=== PATIENT | male | born 1945 | race Caucasian/White ===

== ENCOUNTER 2016-08-03 15:22 | Inpatient (IN) | payer MEDICARE, OTHER ==
[~2016-08-03] VITALS: Ht 177.8 cm; Wt 83.0 kg
[~2016-08-03 15:22] MED LIST: ARICEPT10 MG PO; ATIVAN0.5 MG PO; BISACODYL5 MG PO; BUPROBAN150 MG PO; COLACE100 MG PO; COUMADIN2.5 MG OR; COUMADIN2.5 MG PO; COUMADIN5 MG OR; COUMADIN5 MG PO; ELAVIL25 MG PO; ELIQUIS2.5 MG PO; FLEXERIL10 MG OR; FLOMAX0.4 MG PO; K-DUR20 MEQ PO; LEVAQUIN750 MG PO; LEXAPRO10 MG PO; LIPITOR10 MG PO; MS CONTIN15 MG PO; NORCO 10/325 TA1 TA1 PO; NORCO 5/325 TAB1 TA1 PO; PRESERVISION AR1 CAP PO; SALINE FLUSH10 ML IJ; SENOKOT-S TABLE1 TAB PO; TYLENOL 325 MG325 MG PO; TYLENOL650 MG PO; VESICARE10 MG PO; WELLBUTRIN SR150 MG PO
[2016-08-03] MEDS ORDERED: ELAVIL10 MG PO (16:09)
[2016-08-03] MEDS ORDERED: ELOCON 0.1% OIN15 GM TOPICAL (16:10)
[2016-08-03] MEDS ORDERED: VITAMIN B-121000 MCG PO (16:11)
--- NOTE | 2016-08-03 16:20 | NUR ---
RECIEVED TO ROOM 2202 FROM ADMISSIONS VIA DIRECT ADMISSION FROM [facility] FOR HEMATURIA AND CLOTTING DISORDER. PT AWAKE AND ALERT ORIENTED X 3 PIV SITED TO LEFT UPPER ARM 20 GA X 1 STICK. FLUIDS PER ORDER. AT BEDSIDE.
[2016-08-03 17:07] LABS: BASOPHILS 0.3 % (0.0-2.0); EOSINOPHILS 0.1 % (0-7); HEMATOCRIT 36.8 % (42.0-54.0); HEMOGLOBIN 11.8 g/dL (13.5-17.5); IMMATURE GRANULOCYTES 0.4 % (0-5); LYMPHOCYTES 15.1 % (15-50); MCH 31.5 pg (26.0-34.0); MCHC 32.1 g/dL (31.0-37.0); MCV 98.1 fL (80.0-100.0); MEAN PLATELET VOLUME 9.8 fL (7.4-10.4); MONOCYTES 9.3 % (2-11); NEUTROPHILS 74.8 % (40-80); PLATELET COUNT 172 10x3/uL (130-400); RBC 3.75 10x6/uL (4.20-6.10); RDW 14.8 % (11.5-14.5); WBC 13.9 10x3/uL (4.8-10.8)
[2016-08-03 17:22] LABS: INR 2.29 (0.85-1.17); PROTIME 25.3 SECONDS (11.6-15.0)
[2016-08-03 17:27] LABS: ALBUMIN 3.5 g/dL (3.4-5.0); ANION GAP 12.5 mmol/L (8-16); BILIRUBIN - TOTAL 1.08 mg/dL (0.2-1.3); CALCIUM 8.3 mg/dL (8.5-10.1); CARBON DIOXIDE 28.2 mmol/L (21.0-32.0); CREATININE - SERUM 1.4 mg/dL (0.6-1.3); POTASSIUM - SERUM 3.7 mmol/L (3.5-5.1); PROTEIN - SERUM 7.3 g/dL (6.4-8.2)
--- NOTE | 2016-08-03 19:30 | NUR ---
PT RECEIVED RESTING IN BED WITH EYES CLOSED. PT ALERT AND ORIENTED X3. BREATH SOUNDS CLEAR BILATERALLY. RESPIRATIONS ARE EVEN AND UNLABORED. BOWEL SOUNDS ACTIVE X4. ABD SOFT AND NONTENDER UPON PALPATION. HAND SHAFT HEADMAN EQUAL. PT UP AD KRISTEN. DENIES PAIN OR NEEDS AT THIS TIME. IV NOTED TO LEFT UPPER ARM, WITH D5 1/2 NS, NOTED TO BE PATENT. CALL LIGHT AND H2O IN PT REACH. SIDE RAILS UP X2. BED IN LOW POSITION.
[2016-08-03 20:00] VITALS: BP 140/66
--- NOTE | 2016-08-03 20:00 | NUR ---
PT NOTED TO HAVE FEVER OF 101. DR. LIZARRAGA NOTIFIED, NEW ORDER FOR ACETAMINOPHEN 325MG 1 PO Q6HR PRN FEVER RECEIVED. PT REFUSED ACETAMINOPHEN. PT STATES, "I DON'T WANT TYLENOL. YOU CAN KEEP YOUR TYLENOL. I DON'T FEEL LIKE I HAVE A FEVER. I FEEL FINE." PT NOTED TO HAVE TWO BLANKETS COVERING BODY. PT AGREED TO REMOVE BLANKETS IN EFFORTS TO LOWER BODY TEMPERATURE. PT DENIES PAIN OR NEEDS AT THIS TIME. CALL LIGHT AND H2O IN PT REACH. SIDE RAILS UP X2. BED IN LOW POSITION.
--- NOTE | 2016-08-03 21:30 | NUR ---
PT RESTING IN BED WITH EYES CLOSED. AROUSES TO VERBAL STIMULI. RESPIRATIONS EVEN AND UNLABORED. NO S/S OF DISTRESS NOTED. PT DENIES PAIN OR NEEDS AT THIS TIME. CALL LIGHT AND H2O IN PT REACH. SIDE RAILS UP X2. BED IN LOW POSITION.
--- NOTE | 2016-08-03 23:30 | NUR ---
PT UP IN BED. NO S/S OF DISTRESS NOTED. RESPIRATIONS EVEN AND UNALBORED. RESIDENT DENIES PAIN OR NEEDS. CALL LIGHT AND H2O IN PT REACH. SIDE RAILS UP X2. PT DENIES PAIN OR NEEDS. URINE SPECIMEN COLLECTED VIA CLEAN CATCH AND SENT TO LAB.
[2016-08-03 23:55] LABS: APPEARANCE TURBID (CLEAR); BILIRUBIN NEGATIVE (NEGATIVE); COLOR RED (YELLOW); GLUCOSE NEGATIVE (NEGATIVE); KETONE NEGATIVE (NEGATIVE); LEUKOCYTE ESTERASE 1+ (NEGATIVE); NITRITE NEGATIVE (NEGATIVE); PROTEIN 3+ mg/dL (NEGATIVE); UROBILINOGEN NORMAL (NORMAL)
[2016-08-03 23:57] LABS: BACTERIA MODERATE /hpf (NONE SEEN); EPITHELIAL CELLS RARE /hpf (0-5); RED CELLS - URINE >50 /hpf (0-5); WHITE CELLS - URINE 25-50 /hpf (0-5)
[2016-08-04] VITALS: BP 119/49
--- NOTE | 2016-08-04 01:30 | NUR ---
PT RESTING IN BED WITH EYES CLOSED. NO S/S OF DISTRESS NOTED. RESP EVEN AND UNLABORED. PT ABLE TO VOICE NEEDS, NO COMPLAINTS OR NEEDS VOICED AT THIS TIME. CALL LIGHT AND H2O IN PT REACH. SIDE RAILS UP X2. BED IN LOW POSITION.
[2016-08-04 04:00] VITALS: BP 136/62
--- NOTE | 2016-08-04 04:00 | NUR ---
PATIENT SLEEPING WITH NO DISTRESS NOTED. AGREE WITH MELTER SUPERVISOR ELECTRIC ARC FURNACE ASSESSMENT.
--- NOTE | 2016-08-04 05:30 | NUR ---
PT RESTING IN BED WITH EYES CLOSED. NO S/S OF DISTRESS NOTED. RESP EVEN AND UNLABORED. PT ABLE TO VOICE NEEDS, NO COMPLAINTS OR NEEDS VOICED AT THIS TIME. CALL LIGHT AND H20 IN REACH. BED IN LOW POSITION. SIDE RAILS UP X2.
[2016-08-04 06:29] LABS: BASOPHILS 0.1 % (0.0-2.0); EOSINOPHILS 0.4 % (0-7); HEMATOCRIT 34.7 % (42.0-54.0); HEMOGLOBIN 11.4 g/dL (13.5-17.5); IMMATURE GRANULOCYTES 0.2 % (0-5); MCH 31.8 pg (26.0-34.0); MCHC 32.9 g/dL (31.0-37.0); MCV 96.7 fL (80.0-100.0); MEAN PLATELET VOLUME 10.2 fL (7.4-10.4); MONOCYTES 12.9 % (2-11); NEUTROPHILS 75.4 % (40-80); PLATELET COUNT 145 10x3/uL (130-400); RBC 3.59 10x6/uL (4.20-6.10); RDW 14.7 % (11.5-14.5); WBC 10.8 10x3/uL (4.8-10.8)
[2016-08-04 06:58] LABS: ANION GAP 13.9 mmol/L (8-16); BILIRUBIN - TOTAL 0.95 mg/dL (0.2-1.3); CALCIUM 8.1 mg/dL (8.5-10.1); CARBON DIOXIDE 24.6 mmol/L (21.0-32.0); CREATININE - SERUM 1.3 mg/dL (0.6-1.3); POTASSIUM - SERUM 3.5 mmol/L (3.5-5.1); PROTEIN - SERUM 6.7 g/dL (6.4-8.2)
[2016-08-04 08:09] VITALS: BP 121/49
--- NOTE | 2016-08-04 08:11 | NUR ---
PT. AOX4 RESP EVEN AND NONLABORED IV TO LEFT UPPER ARM PATENT ANT INTACT PT. DENIES NEEDS AT THIS TIME BED AT LOWEST SETTING AND CALL LIGHT WITHIN REACH WILL CONTINUE TO MONITOR
[2016-08-04 10:44] VITALS: BMI 26.2
[2016-08-04 12:12] VITALS: BP 124/48
[2016-08-04 15:48] VITALS: BP 106/42
--- NOTE | 2016-08-04 19:30 | NUR ---
PT RECEIVED RESTING IN BED WITH EYES CLOSED. PT AROUSES TO VERBAL STIMULI. BREATH SOUNDS CLEAR BILATERALLY. RESPIRATIONS ARE EVEN AND UNLABORED. BOWEL SOUNDS ACTIVE IN ALL FOUR QUADRANTS. ABD SOFT AND NONTENDER UPON PALPATION. PT STATES LAST BM WAS YESTERDAY. IV TO LEFT UPPER FOREARM, WITH D5 1/2 @ 75, NOTED TO BE PATENT. DRESSING TO IV IS CLEAN, DRY, AND INTACT. NO REDNESS OR EDEMA NOTED TO IV SITE. PT DENIES PAIN OR NEEDS AT THIS TIME. CALL LIGHT AND FLUIDS IN PT REACH. SIDE RAILS UP X2. BED IN LOW POSITION.
[2016-08-04 20:00] VITALS: BP 118/45
--- NOTE | 2016-08-04 21:30 | NUR ---
PT RESTING IN BED WITH EYES CLOSED. NO S/S OF DISTRESS NOTED. RESPIRATIONS EVEN AND UNLABORED. PT ABLE TO VOICE NEEDS, NO COMPLAINTS OR NEEDS VOICED AT THIS TIME. CALL LIGHT AND FLUIDS IN PT REACH. SIDE RAILS UP X2. BED IN LOW POSITION.
[2016-08-05] VITALS: BP 98/43
--- NOTE | 2016-08-05 01:30 | NUR ---
PT RESTING IN BED WITH EYES CLOSED. NO S/S OF DISTRESS NOTED. RESPIRATIONS EVEN AND UNLABORED. PT ABLE TO VOICE NEEDS, NO COMPLAINTS OR NEEDS VOICED AT THIS TIME. CALL LIGHT AND H2O IN PT REACH. SIDE RAILS UP X2. BED IN LOW POSITION.
[2016-08-05 04:00] VITALS: BP 106/48
[2016-08-05 04:36] VITALS: Ht 177.8 cm; Wt 83.0 kg
--- NOTE | 2016-08-05 05:30 | NUR ---
PT RESTING IN BED WITH EYES CLOSED. NO S/S OF DISTRESS NOTED. RESPIRATIONS EVEN AND UNLABORED. PT ABLE TO VOICE NEEDS, NO COMPLAINTS OR NEEDS VOICED AT THIS TIME. CALL LIGHT AND H2O IN PT REACH. SIDERAILS UP X2. BED IN LOW POSITION.
[2016-08-05 05:41] LABS: BASOPHILS 0.2 % (0.0-2.0); EOSINOPHILS 0.6 % (0-7); HEMATOCRIT 31.8 % (42.0-54.0); HEMOGLOBIN 10.3 g/dL (13.5-17.5); IMMATURE GRANULOCYTES 0.2 % (0-5); MCH 30.9 pg (26.0-34.0); MCHC 32.4 g/dL (31.0-37.0); MCV 95.5 fL (80.0-100.0); MONOCYTES 12.6 % (2-11); NEUTROPHILS 70.4 % (40-80); PLATELET COUNT 156 10x3/uL (130-400); RBC 3.33 10x6/uL (4.20-6.10); RDW 14.3 % (11.5-14.5); WBC 9.6 10x3/uL (4.8-10.8)
[2016-08-05 06:10] LABS: ALBUMIN 2.4 g/dL (3.4-5.0); ANION GAP 11.8 mmol/L (8-16); BILIRUBIN - TOTAL 0.9 mg/dL (0.2-1.3); CALCIUM 7.6 mg/dL (8.5-10.1); CARBON DIOXIDE 24.4 mmol/L (21.0-32.0); CREATININE - SERUM 1.2 mg/dL (0.6-1.3); POTASSIUM - SERUM 3.2 mmol/L (3.5-5.1); PROTEIN - SERUM 5.9 g/dL (6.4-8.2)
[2016-08-05 06:11] LABS: INR 1.84 (0.85-1.17); PROTIME 21.2 SECONDS (11.6-15.0)
--- NOTE | 2016-08-05 07:33 | NUR ---
PT AWAKENS EASILY TO VERBAL STIMULI DENIES ANY NEEDS AT THIS TIME. RESP EVEN AND NONLABORED IV TO LEFT UPPER ARM PATENT AND INTACT BED AT LOWEST SETTING AND CALL LIGHT WITHIN REACH WILL CONTINUE TO MONITOR
[2016-08-05 08:30] VITALS: BP 98/50
[2016-08-05 12:54] VITALS: BP 107/50
[2016-08-05 17:00] VITALS: BP 119/50
--- NOTE | 2016-08-05 19:52 | NUR ---
REC'D IN BED WITH EYES CLOSED AROUSED EASILY ONCE DOOR OPENED. RESP EVEN AND UNLABORED WITH NO DISTRESS NOTED. CAN EXPRESS NEEDS AND WANTS. NO C/O NOTED OR VOICED AT THIS TIME. ASSESMENT COMPLETED. SKIN WARM AND DRY. C/L IN REACH AT BEDSIDE.
[2016-08-05 20:44] VITALS: BP 118/46
[2016-08-06 04:00] VITALS: BP 93/42
[2016-08-06 05:35] LABS: BASOPHILS 0.2 % (0.0-2.0); EOSINOPHILS 2.6 % (0-7); HEMATOCRIT 31.8 % (42.0-54.0); HEMOGLOBIN 10.3 g/dL (13.5-17.5); IMMATURE GRANULOCYTES 0.2 % (0-5); LYMPHOCYTES 17.7 % (15-50); MCH 30.8 pg (26.0-34.0); MCHC 32.4 g/dL (31.0-37.0); MCV 95.2 fL (80.0-100.0); MEAN PLATELET VOLUME 10.2 fL (7.4-10.4); MONOCYTES 12.9 % (2-11); NEUTROPHILS 66.4 % (40-80); PLATELET COUNT 156 10x3/uL (130-400); RBC 3.34 10x6/uL (4.20-6.10); RDW 14.1 % (11.5-14.5); WBC 8.9 10x3/uL (4.8-10.8)
[2016-08-06 05:48] LABS: INR 1.29 (0.85-1.17)
[2016-08-06 06:02] LABS: ALBUMIN 2.3 g/dL (3.4-5.0); ANION GAP 14.1 mmol/L (8-16); BILIRUBIN - TOTAL 0.7 mg/dL (0.2-1.3); CALCIUM 7.9 mg/dL (8.5-10.1); CARBON DIOXIDE 22.3 mmol/L (21.0-32.0); CREATININE - SERUM 1.1 mg/dL (0.6-1.3); POTASSIUM - SERUM 3.4 mmol/L (3.5-5.1); PROTEIN - SERUM 6.1 g/dL (6.4-8.2)
--- NOTE | 2016-08-06 07:36 | NUR ---
SLEEPING AT THIS TIME. SELF POSITIONS FOR COMFORT. CALL LIGHT IN REACH, BED IN LOWEST POSITION WITH WHEELS LOCKED AND SRX2. WILL CONTINUE WITH PLAN OF CARE.
[2016-08-06 07:57] VITALS: BP 110/41
--- NOTE | 2016-08-06 09:55 | NUR ---
SCHEDULED MEDICATIONS ADMINISTERED AT THIS TIME. ASSESSMENT PERFORMED PER FLOWSHEET. PT ON PHONE SPEAKING WITH FAMILY MEMBER AT THIS TIME. DENIES FURTHER NEEDS CURRENTLY. CALL LIGHT IN REACH, WILL CONTINUE WITH PLAN OF CARE.
[2016-08-06 12:12] VITALS: BP 114/41
--- NOTE | 2016-08-06 14:47 | NUR ---
SCHEDULED ANTIBIOTIC ADMINISTERED AT THIS TIME. DENIES NEEDS. AT BEDSIDE. CALL LIGHT IN REACH, WILL CONTINUE WITH PLAN OF CARE.
[2016-08-06 15:38] VITALS: BP 122/48
[2016-08-06 20:00] VITALS: BP 169/72
--- NOTE | 2016-08-06 20:00 | NUR ---
REC'D IN BED AWAKE AND ALERT. RESP EVEN AND UNLABORED WITH NO DISTRESS NOTED. CAN EXRESS NEEDS AND WANTS. DENEIS ANY PAIN OR DISCOMFORT AT THIS TIME. ASSESSMENT COMPLETED. C/L IN REACH AT BEDSIDE.
[2016-08-07] VITALS (9 sets, daily range): BP systolic 102–130; BP diastolic 40–68
--- NOTE | 2016-08-07 04:00 | NUR ---
RESTING WELL AT THIS TIME. NO DISTRESS NOTED. WILL CONTINUE TO OBSERVE FOR NEEDS. C/L IN REACH AT BEDSIDE
--- NOTE | 2016-08-07 04:47 | NUR ---
PATIENT SLEEPING. NO VISIBLE SIGNS OF DISTRESS. BED IN LOWEST POSITION AND CALL LIGHT WITHIN REACH.
[2016-08-07 06:02] LABS: INR 1.12 (0.85-1.17); PROTIME 14.3 SECONDS (11.6-15.0)
[2016-08-07 06:04] LABS: BASOPHILS 0.2 % (0.0-2.0); EOSINOPHILS 4.6 % (0-7); HEMATOCRIT 31.6 % (42.0-54.0); HEMOGLOBIN 10.2 g/dL (13.5-17.5); IMMATURE GRANULOCYTES 0.1 % (0-5); LYMPHOCYTES 17.9 % (15-50); MCH 30.5 pg (26.0-34.0); MCHC 32.3 g/dL (31.0-37.0); MCV 94.6 fL (80.0-100.0); MEAN PLATELET VOLUME 10.2 fL (7.4-10.4); MONOCYTES 9.5 % (2-11); NEUTROPHILS 67.7 % (40-80); PLATELET COUNT 170 10x3/uL (130-400); RBC 3.34 10x6/uL (4.20-6.10); RDW 14.2 % (11.5-14.5); WBC 8.8 10x3/uL (4.8-10.8)
[2016-08-07 06:20] LABS: ALBUMIN 2.3 g/dL (3.4-5.0); BILIRUBIN - TOTAL 0.5 mg/dL (0.2-1.3); CARBON DIOXIDE 23.6 mmol/L (21.0-32.0); CREATININE - SERUM 1.1 mg/dL (0.6-1.3); POTASSIUM - SERUM 3.6 mmol/L (3.5-5.1); PROTEIN - SERUM 6.3 g/dL (6.4-8.2)
--- NOTE | 2016-08-07 07:38 | NUR ---
AWAKE AND ALERT AT THIS TIME. AT BEDSIDE. PT REMAINS NPO FOR CYSTOSCOPY TODAY. CALL LIGHT IN REACH. DENIES NEEDS AT THIS TIME. BED IN LOWEST POSITION WITH WHEELS LOCKED AND SRX2. WILL CONTINUE WITH PLAN OF CARE.
--- NOTE | 2016-08-07 08:25 | NUR ---
SCHEDULED MEDICATION ADMINISTERED AT THIS TIME. ASSESSMENT PERFORMED PER FLOWSHEET. AT BEDSIDE. REMAINS NPO AT THIS TIME. CALL LIGHT IN REACH. WILL CONTINUE WITH PLAN OF CARE.
--- NOTE | 2016-08-07 09:47 | NUR ---
SCHEDULED PRE-OPERATIVE MEDICATIONS ADMINISTERED AT THIS TIME. HIBICLENS BATH PROVIDED, PT VOIDED WITHOUT DIFFICULTY AND MEDICATIONS TAKEN WITH A SMALL SIP OF WATER. WILL MONITOR PT WHEN HE RETURNS TO ROOM 2202.
--- NOTE | 2016-08-07 11:25 | NUR ---
REPORT RECEIVED FROM SHAHID ENRIQUE IN RECOVERY. WILL AWAIT PT'S ARRIVAL BACK TO ROOM 2202.
--- NOTE | 2016-08-07 13:00 | NUR ---
TOLERATING REGULAR DIET WITHOUT NAUSEA OR VOMITING. WEANED OFF OF OXYGEN AT THIS TIME. SATURATION 98% ON ROOM AIR. REMAINS AT BEDSIDE AND PT DENIES PAIN AT THIS TIME. CALL LIGHT IN REACH, WILL CONTINUE WITH PLAN OF CARE.
[2016-08-07] MEDS ORDERED: PROSCAR5 MG PO (13:18)
--- NOTE | 2016-08-07 13:24 | NUR ---
* Is the patient Alert and Oriented? Yes 0 * Preadmission Environment Home with Family 0 * ADLs Independent 0 * Equipment Cane Rolling Walker 0 * List name and contact numbers for known caregivers / representatives who currently or will assist patient after discharge: Spouse 0 * Additional services required to return to the preadmission environment? No 0 * Can the patient safely return to the preadmission environment? Yes 0 * Has this patient been hospitalized within the prior 30 days at any hospital? No 08/07/2016 13:24 DCP: Discharge Planning Patient Name: RHINA POWERS Admission Status: Urgent Accout number: [id number] Admission Date: 08-03-2016 : 1945 Admission Diagnosis: Attending: RICK Current LOS: 4 Anticipated DC Date: 08-07-2016 Planned Disposition: Home Primary Insurance: MEDICARE A & B Discharge Planning Comments: CM met with patient & spouse to assess dc plans/needs. They live together in a single level home. Patient reports he is independent with all ADL's & IADL's. He has a walker & cane at home. At dc, he will return home with his . No needs identified or verbalized at this time. Anticipate dc this afternoon.
--- NOTE | 2016-08-07 14:00 | NUR ---
VOIDED 400ML OF URINE AT THIS TIME. PT READY TO D/C HOME AT THIS TIME.
--- NOTE | 2016-08-07 14:12 | NUR ---
DISCHARGE PAPERWORK REVIEWED WITH PT AND HIS AT THIS TIME. IV TO LEFT UPPER ARM D/C WITH CATH TIP INTACT. DENIES QUESTIONS OR CONCERNS. WILL D/C HOME WITH .
--- NOTE | 2016-08-08 13:51 | OP ---
PATIENT NAME: RHINA POWERS MEDICAL RECORD: [id number] :41 LOCATION:[facility] ADMISSION DATE:08/03/16 SURGEON: WILDER MIJARES MD DATE OF OPERATION: 08/07/2016 SURGEON: Wilder Mijares M.D. ANESTHESIOLOGIST: Dr. Gonzalez MAC was given. FINDINGS: Obstructive benign prostatic hypertrophy with bilateral lateral lobe hyperplasia, trabeculated bladder, single ureteral orifices. No bladder tumors, no bleeding from the ureteral stents. PROCEDURE: Cystoscopy, bilateral ureteral stent removal. SPECIMENS: Bilateral ureteral stents. PREOPERATIVE DIAGNOSES: Gross hematuria, hemorrhagic cystitis due to obstructive benign prostatic hypertrophy and coagulopathy ____. ESTIMATED BLOOD LOSS: None. CLINICAL HISTORY: This is a 70-year-old male, who came from another hospital. He has a urologist at another facility. He presented with gross hematuria as well as dysuria a few weeks ago. The other urologist inserted bilateral ureteral stents and he was not able to ascertain where the bleeding was coming from. The patient is also on Coumadin for unknown reasons. The Coumadin had been held about 1 week before he came to this hospital. On the day of his admission, the other urologist ____ perform nephroscopy on the patient, but the other urologist became ill and could not perform the procedure. The patient and his family then came to this hospital to be attended to. What it is interesting is that even though the Coumadin has been held for 2 weeks now, his INR preoperatively today still 2.2. Therefore, he has some underlying coagulopathy for which a hematology needs a workup. Also, his urine culture grew staph. He is on antibiotics for this. Due to the presence of bacteria in the urine, we will have to remove the ureteral stents, which are contaminated. He is not allergic to any medications and gave him Ancef 1 gram IV concrete building assembler to the OR today. Finally, I performed a CT scan of the abdomen and pelvis and the kidneys appeared to be completely normal and no ureteral masses were seen either. Today, the aim is to get rid of the infected ureteral stents as well as to check the bladder and to coagulate any active bleeding. The patient says that his gross hematuria has cleared up during his admission. DESCRIPTION OF PROCEDURE: The patient was given IV sedation. He was then placed into dorsal lithotomy position and prepped and draped. Uro-Jet lidocaine jelly was instilled into the urethra. A 21-Kyrgyz cystoscope with 30-degree lens was used for visualization. The penile urethra was completely normal with no lesions and no strictures. The bulbar urethra showed some irritation from his previous Khan catheter. The prostate shows bilateral lateral lobe hyperplasia, which is obstructive in the midline. The median lobe is not significant. Verumontanum was identified. He has single ureteral orifices, each of which contained a ureteral stent. There is no bleeding visible from the stents or the ureteral orifices. Looking into the bladder, the bladder is moderately trabeculated with some diverticula and cellules. However, I did not see any bladder tumors. There are signs of irritation of the bladder wall from OPERATIVE REPORT [id number] RHINA POWERS his previous indwelling Khan catheter. Grasping forceps were used and then each of the stents in turn was entirely removed. I had intended to perform retrograde pyelogram also to check the ureters further, but the fluoroscopy is not working today. Just based on the CT scan alone, I would not aggressively pursue this. I will get the patient started on some Proscar. He is already on some tamsulosin. My conjecture as the whole process that started that he has obstructive BPH and he developed a UTI from it. This turned into a hemorrhagic cystitis due to his underlying coagulopathy, which was exacerbated by the use of Coumadin. I will see the patient in followup in about 1 month's time to see how his voiding symptoms are responding to the medications. TRANSINT:[id number] Voice Confirmation ID: [id number] DOCUMENT ID: [id number] WILDER MIJARES MD at 1351 CC: [id number] DICTATION DATE: 08/07/16 1112 VICE PRESIDENT CLIENT SERVICES: 08/07/16 1354 DIS IN 08/07/16 [facility] [address] [id number]
== END 2016-08-07 14:15 | disposition home or self-care (01) | DRG 698 ==
LOC: D.MS 15:22
PROVIDERS: Family Medicine; Urology; ADMIT Family Medicine
PROC: 0TPB8DZ Removal of Intraluminal Device from Bladder, Via Natural or Artificial Opening Endoscopic (ICD-10-PCS; principal; 2016-08-07 10:00)
DX: T83.593A Infection and inflammatory reaction due to other urinary stents, initial encounter (principal); A41.9 Sepsis, unspecified organism; N13.8 Other obstructive and reflux uropathy; N40.1 Benign prostatic hyperplasia with lower urinary tract symptoms; N32.89 Other specified disorders of bladder; J44.9 Chronic obstructive pulmonary disease, unspecified; K74.60 Unspecified cirrhosis of liver

== ENCOUNTER 2017-10-04 15:32 | Emergency (ER) | payer MEDICARE, OTHER ==
[2016-08-05 04:36] VITALS: BMI 26.3
[~2017-10-04 15:32] MED LIST changes: +ELAVIL10 MG PO; +ELOCON 0.1% OIN15 GM TOPICAL; +PROSCAR5 MG PO; +VITAMIN B-121000 MCG PO
[2017-10-04 16:42] LABS: BASOPHILS 0.5 % (0-2); HEMATOCRIT 43.4 % (42.0-54.0); HEMOGLOBIN 15.3 g/dL (13.5-17.5); IMMATURE GRANULOCYTES 0.4 % (0-5); LYMPHOCYTES 32.7 % (15-50); MCH 32.6 pg (26.0-34.0); MCHC 35.3 g/dL (31.0-37.0); MCV 92.3 fL (80.0-100.0); MEAN PLATELET VOLUME 9.7 fL (7.4-10.4); MONOCYTES 7.4 % (2-11); PLATELET COUNT 149 10x3/uL (130-400); RDW 12.9 % (11.5-14.5); WBC 8.3 10x3/uL (4.8-10.8)
[2017-10-04 16:58] LABS: ALBUMIN 3.4 g/dL (3.4-5.0); BILIRUBIN - TOTAL 0.58 mg/dL (0.2-1.3); CREATININE - SERUM 1.1 mg/dL (0.6-1.3); PROTEIN - SERUM 7.1 g/dL (6.4-8.2)
== END 2017-10-04 17:29 | disposition home or self-care (01) ==
LOC: D.ER 15:32
PROVIDERS: Emergency Medicine
DX: R42 Dizziness and giddiness (principal); H81.10 Benign paroxysmal vertigo, unspecified ear

== ENCOUNTER 2017-12-05 07:30 | Day surgery (SDC) | payer MEDICARE, OTHER ==
[2017-12-04 11:38] LABS: HEMATOCRIT 44.2 % (42.0-54.0); HEMOGLOBIN 15.8 g/dL (13.5-17.5); MCH 33.2 pg (26.0-34.0); MCHC 35.7 g/dL (31.0-37.0); MCV 92.9 fL (80.0-100.0); MEAN PLATELET VOLUME 9.6 fL (7.4-10.4); RBC 4.76 10x6/uL (4.20-6.10); RDW 13.2 % (11.5-14.5); WBC 8.1 10x3/uL (4.8-10.8)
[~2017-12-05] VITALS: Ht 177.8 cm; Wt 85.3 kg
[~2017-12-05 07:30] MED LIST changes: +BAYER CHEWABLE81 MG PO; +VITAFOL-OB CA1 UDTAB PO
[2017-12-05 08:00] VITALS: BP 138/68; Ht 177.8 cm; Wt 85.3 kg
[2017-12-05] MEDS ORDERED: LIPITOR10 MG PO (08:00)
[2017-12-05] MEDS ORDERED: MIRALAX17 GM PO (10:59)
[2017-12-05] MEDS ORDERED: VALIUM5 MG PO (11:00)
== END 2017-12-05 13:16 | disposition home or self-care (01) ==
LOC: D.OPS 07:30 → D.PAN 09:45 → D.OPS 09:45
PROVIDERS: Anesthesiology
DX: K64.8 Other hemorrhoids (principal); D12.0 Benign neoplasm of cecum; Z01.812 Encounter for preprocedural laboratory examination

== ENCOUNTER → 2018-11-11 10:52 | Outpatient (CLI) | payer MEDICARE, OTHER ==
[2017-12-05 08:00] VITALS: BMI 27.0
[~2018-11-11 10:52] MED LIST changes: +MIRALAX17 GM PO; +VALIUM5 MG PO
== END | disposition home or self-care (01) ==
LOC: D.HCCARDIO 10:52
PROVIDERS: ATTEND Internal Medicine Cardiovascular Disease
DX: R06.02 Shortness of breath (principal)

== ENCOUNTER 2018-12-01 21:13 | Inpatient (IN) | payer MEDICARE, OTHER ==
[~2018-12-01] VITALS: Ht 177.8 cm; Wt 72.6 kg
[2018-12-01] MEDS ORDERED: FOLATE0.4 MG PO (21:27)
[2018-12-01] MEDS ORDERED: LIPITOR10 MG PO (21:28)
[2018-12-01] MEDS ORDERED: BUPROPION XL300 MG PO (21:28)
[2018-12-01] MEDS ORDERED: LUPIN (21:28)
[2018-12-01] MEDS ORDERED: LEXAPRO10 MG (21:28)
[2018-12-01 22:04] LABS: BASOPHILS 0.2 % (0-2); EOSINOPHILS 1.1 % (0-7); HEMATOCRIT 49.4 % (42.0-54.0); HEMOGLOBIN 17.7 g/dL (13.5-17.5); IMMATURE GRANULOCYTES 0.1 % (0-5); LYMPHOCYTES 4.3 % (15-50); MCH 32.2 pg (26.0-34.0); MCHC 35.8 g/dL (31.0-37.0); MCV 89.8 fL (80.0-100.0); MEAN PLATELET VOLUME 9.9 fL (7.4-10.4); NEUTROPHILS 89.3 % (40-80); PLATELET COUNT 141 10x3/uL (130-400); RDW 12.8 % (11.5-14.5)
[2018-12-01 22:10] LABS: APTT 37.7 SECONDS (22.8-39.4); INR 1.16 (0.85-1.17); PROTIME 14.3 SECONDS (11.6-15.0)
[2018-12-01 22:14] LABS: ALBUMIN 4.2 g/dL (3.4-5.0); ALKALINE PHOSPHATASE 108 U/L (46-116); ALT (SGPT) 47 U/L (10-68); BILIRUBIN - TOTAL 0.68 mg/dL (0.2-1.3); CALC OSMOLALITY 277 mosm/kg (275-300); CARBON DIOXIDE 26.9 mmol/L (21.0-32.0); CHLORIDE - SERUM 101 mmol/L (98-107); CREATININE - SERUM 1.3 mg/dL (0.6-1.3); GLUCOSE 146 mg/dL (74-106); POTASSIUM - SERUM 3.5 mmol/L (3.5-5.1); PROTEIN - SERUM 8.3 g/dL (6.4-8.2); SODIUM 137 mmol/L (136-145); UREA NITROGEN 16 mg/dL (7-18); eGFR NON AFRICAN AMERICAN 57 mL/min (90-120)
[2018-12-01 22:29] LABS: CKMB 1.1 U/L (0.0-3.6); CREATINE KINASE 91 UL (21-232); MAGNESIUM - SERUM 1.9 mg/dL (1.8-2.4); THYROID STIMULATING HORMONE 0.86 uIU/mL (0.36-3.74)
[2018-12-01 22:30] LABS: TROPONIN-I < 0.017 ng/mL (0.000-0.060)
[2018-12-02 00:22] LABS: APPEARANCE CLEAR (CLEAR); BILIRUBIN NEGATIVE (NEGATIVE); COLOR YELLOW (YELLOW); GLUCOSE NEGATIVE (NEGATIVE); KETONE NEGATIVE (NEGATIVE); NITRITE NEGATIVE (NEGATIVE); PROTEIN NEGATIVE (NEGATIVE); UROBILINOGEN NORMAL (NORMAL)
[2018-12-02 02:11] VITALS: BP 107/64
[2018-12-02 02:42] VITALS: BP 121/44; BMI 23.0
[2018-12-02 08:43] VITALS: BP 123/52
[2018-12-02 10:30] LABS: UDS - AMPHET NEGATIVE QUAL (NEGATIVE); UDS - BARB POSITIVE QUAL (NEGATIVE); UDS - BENZO NEGATIVE QUAL (NEGATIVE); UDS - COCAINE NEGATIVE QUAL (NEGATIVE); UDS - OPIATE NEGATIVE QUAL (NEGATIVE); UDS - PCP NEGATIVE QUAL (NEGATIVE); UDS - THC NEGATIVE QUAL (NEGATIVE)
[2018-12-02 10:58] LABS: BASOPHILS 0.4 % (0-2); EOSINOPHILS 5.4 % (0-7); HEMATOCRIT 40.8 % (42.0-54.0); HEMOGLOBIN 14.5 g/dL (13.5-17.5); IMMATURE GRANULOCYTES 0.3 % (0-5); LYMPHOCYTES 25.4 % (15-50); MCH 31.9 pg (26.0-34.0); MCHC 35.5 g/dL (31.0-37.0); MCV 89.7 fL (80.0-100.0); MEAN PLATELET VOLUME 9.6 fL (7.4-10.4); MONOCYTES 7.7 % (2-11); NEUTROPHILS 60.8 % (40-80); PLATELET COUNT 129 10x3/uL (130-400); RBC 4.55 10x6/uL (4.20-6.10); RDW 12.9 % (11.5-14.5)
[2018-12-02 11:05] LABS: ANION GAP 13.3 mmol/L (8-16); CALCIUM 8.7 mg/dL (8.5-10.1); CARBON DIOXIDE 27.3 mmol/L (21.0-32.0); CREATININE - SERUM 1.1 mg/dL (0.6-1.3); POTASSIUM - SERUM 3.6 mmol/L (3.5-5.1)
[2018-12-02 11:06] LABS: WBC 6.9 10x3/uL (4.8-10.8)
[2018-12-02 12:06] VITALS: Ht 177.8 cm; Wt 72.6 kg
[2018-12-02 13:10] VITALS: BP 139/65
[2018-12-02 17:15] VITALS: BP 120/53
--- NOTE | 2018-12-02 20:45 | NUR ---
REC'D CHGE. OF SHIFT WALKING IN HALLWAY WITH FAMILY MEMBER.DENIES ANY COMPLAINTS AT PRESENT TIME.WILL CONTINUE TO MONITOR FOR ANY CHGES AND FOLLOW CURRENT PLAIN OF CARE.
[2018-12-03 00:53] VITALS: BP 145/64
--- NOTE | 2018-12-03 04:00 | NUR ---
I have reviewed this patient and I concur with the Shift Assessment completed by the Licensed Practical Nurse today this shift.
[2018-12-03 04:45] VITALS: BP 111/47
[2018-12-03 07:05] LABS: BASOPHILS 0.7 % (0-2); EOSINOPHILS 7.2 % (0-7); HEMATOCRIT 42.3 % (42.0-54.0); HEMOGLOBIN 14.8 g/dL (13.5-17.5); IMMATURE GRANULOCYTES 0.1 % (0-5); LYMPHOCYTES 35.9 % (15-50); MCH 31.6 pg (26.0-34.0); MCV 90.4 fL (80.0-100.0); MONOCYTES 10.3 % (2-11); NEUTROPHILS 45.8 % (40-80); PLATELET COUNT 141 10x3/uL (130-400); RBC 4.68 10x6/uL (4.20-6.10); RDW 13.1 % (11.5-14.5); WBC 7.7 10x3/uL (4.8-10.8)
[2018-12-03 07:19] LABS: ANION GAP 12.5 mmol/L (8-16); CALCIUM 8.9 mg/dL (8.5-10.1); CARBON DIOXIDE 28.3 mmol/L (21.0-32.0); CREATININE - SERUM 1.1 mg/dL (0.6-1.3); POTASSIUM - SERUM 3.8 mmol/L (3.5-5.1)
[2018-12-03 09:08] VITALS: BP 118/57
--- NOTE | 2018-12-03 10:23 | NUR ---
PT ASSESSED EARILER THIS SHIFT WITH NO VOICED COMPLAINTS. AMBULATES AD KRISTEN IN ROOM AND SUGGS. FOR DISCHARGE LATER TODAY.
--- NOTE | 2018-12-03 12:09 | MORECARE ---
CASE MANAGEMENT DISCHARGE SUMMARY PATIENT: RHINA POWERS UNIT: [id number] ADM DATE: 12/02/18 AGE: 73 : 43 SEX: M ROOM/BED: D.2203 AUTHOR: NERISSA,DOC PHYSICIAN: REFERRING PHYSICIAN: TERESA ALARCON MD DATE OF SERVICE: 12/03/18 Discharge Plan Patient Name: RHINA POWERS Facility: [facility]:[place] : 1945 Planned Disposition: Home or Self Care Anticipated Discharge Date: Discharge Date: Expected LOS: Initial Reviewer: [email or web address] Initial Review Date: 12/02/2018 Generated: 12/03/18 1:09 pm Comments DCP- Discharge Planning Updated by [email or web address]: Alycia Rosen on 12/03/18 11:[address] Patient Name: RHINA POWERS Admission Status: ER Accout number: [id number] Admission Date: 12-02-2018 : 1945 Admission Diagnosis: Attending: TERESA ALARCON Current LOS: 1 Anticipated DC Date: Planned Disposition: Home or Self Care Primary Insurance: MEDICARE A & B Discharge Planning Comments: CM met with patient to complete initial dc planning assessment. CM educated patient on the CM role and verbal consent given by patient to complete assessment. Patient lives at home with his family where he is independent with his care. At discharge patient plans to return home and feels this is a safe discharge. CM discussed availability of home health, rehab services, and medical equipment. Patient denied known discharge needs at this time. CM will continue to follow and will assist as needed with dc plans/needs. [employer] Fishing Boat Crewman: Alycia Rosen DCPIA - Discharge Planning Initial Assessment Updated by [email or web address]: Alycia Rosen on 12/03/18 12:07 pm * Is the patient Alert and Oriented? Yes * How many steps to enter\exit or inside your home? ramp * PCP [facility] * Pharmacy [facility] * Preadmission Environment Home with Family * ADLs Independent * Equipment None * List name and contact numbers for known caregivers / representatives who currently or will assist patient after discharge: EM BETOPOPEYE [phone] * Verbal permission to speak to the caregivers and representatives has been obtained from the patient. Yes * Community resources currently utilized None * Additional services required to return to the preadmission environment? No * Can the patient safely return to the preadmission environment? Yes * Has this patient been hospitalized within the prior 30 days at any hospital? No Patient Name: RHINA POWERS Page [phone] at 1209 All edits/amendments must be made on the electronic document DICTATION DATE: 12/03/181207 WINDOWS CONSULTANT: TIGRE 12/03/181207 RPT#: [id number] DC DATE: STATUS: ADM IN [facility] [address] [place] [address] END OF REPORT
[2018-12-03 13:28] VITALS: BP 128/58
== END 2018-12-03 15:16 | disposition home or self-care (01) | DRG 864 ==
LOC: D.ER 21:13 → D.MS 12-02 00:50 → OBSVTIME 12-02 00:50 → D.MS 12-02 16:52
PROVIDERS: Emergency Medicine; ADMIT Internal Medicine Nephrology; ATTEND Internal Medicine Nephrology
DX: R50.9 Fever, unspecified (principal); G93.40 Encephalopathy, unspecified; E78.5 Hyperlipidemia, unspecified; K74.60 Unspecified cirrhosis of liver; F03.90 Unspecified dementia, unspecified severity, without behavioral disturbance, psychotic disturbance, mood disturbance, and anxiety; J43.9 Emphysema, unspecified; E11.9 Type 2 diabetes mellitus without complications

== ENCOUNTER 2020-01-01 23:18 | Emergency (ER) | payer MEDICARE, OTHER ==
[~2020-01-01] VITALS: Ht 177.8 cm; Wt 74.1 kg
[~2020-01-01 23:18] MED LIST changes: +BUPROPION XL300 MG PO; +FOLATE0.4 MG PO; +LEXAPRO10 MG; +LUPIN
[2020-01-01 23:25] VITALS: Ht 177.8 cm; Wt 74.1 kg
[2020-01-01] MEDS ORDERED: MEDROL DOSE PACK4 MG PO (23:40)
[2020-01-02 00:16] VITALS: BP 145/85
== END 2020-01-02 00:17 | disposition home or self-care (01) ==
LOC: D.ER 23:18
DX: T63.441A Toxic effect of venom of bees, accidental (unintentional), initial encounter (principal)